=== PATIENT | female | born 1980 | race Caucasian/White ===

== ENCOUNTER 2022-07-09 09:30 | Emergency (ER) | payer BC ==
[~2022-07-09] VITALS: Ht 165.1 cm; Wt 65.8 kg
[2022-07-09] MEDS ORDERED: ONDANSETRON ODT4 MG PO (12:07)
[2022-07-09] MEDS ORDERED: PEPCID AC20 MG PO (12:07)
== END 2022-07-09 13:23 ==
LOC: ER 09:30
DX: K52.9 Noninfective gastroenteritis and colitis, unspecified (principal)